=== PATIENT | male | born 1970 | race African-American/Black ===

== ENCOUNTER 2018-12-06 13:37 | Outpatient (CLI) | payer OTHER ==
--- NOTE | 2018-12-06 14:11 | RAD ---
XR Knee Rt 4 View STANDARD History: Knee pain and swelling Comparison: Radiograph 2007 Findings: Bipartite patella. Large effusion. There is mild flattening of the tear surfaces of the med ial and lateral compartments. Moderate patellofemoral compartment degenerative change. Large tricompartmental osteophytes. Mild widening of the intercondylar notch. Impression: Advanced for age tricompartmental degenerative disease. Joint effusion is greater than ex pected for degenerative change and MRI to evaluate for underlying internal derangement recommended if clinically warranted.
== END 2018-12-06 13:38 | disposition home or self-care (01) ==
LOC: BICRAD 13:37
PROVIDERS: ATTEND Family Medicine
DX: M25.561 Pain in right knee (principal); M25.461 Effusion, right knee; M17.11 Unilateral primary osteoarthritis, right knee

== ENCOUNTER → 2019-07-22 | Day surgery (SDC) | payer OTHER ==
[2019-07-21 08:55] VITALS: BMI 33.9
[~2019-07-22] MED LIST: Lidocaine 1% PF 5 ML VIAL ONE; PROPOFOL 200 MG/20 ML VIAL ONE
--- NOTE | 2019-07-22 16:11 | OP ---
DATE OF PROCEDURE: 07/22/2019 PROCEDURE PERFORMED: Colonoscopy with biopsy. PREOPERATIVE DIAGNOSES: A 49-year-old male with abdominal pain , diarrhea, mild rectal bleeding. The patient had previous history of ulcerative colitis. The patient undergoing colonoscopy. POSTOPERATIVE DIAGNOSES: 1. Colitis, active predominantly in the left colon. 2. Loss of mucosal and vascular pattern and occasional pseudopolyps, transverse colon. 3. Normal ascending colon and cecum. The colitis was over the rectum and up to high sigmoid colon area. DESCRIPTION OF PROCEDURE: The patient was placed on his left lateral position and was given sedation by Anesthesia Department. A digital exam was done before the scope was advanced into the rectum. No lesions felt on rectal exam. A [employer]ax video colonoscope was introduced into the rectum and advanced all the way to the cecum. The patient had some mucosal coating of fecal material. Water was used to irrigate and wash out. In the appendiceal orifice, ileocecal wall, and cecum, no pathology seen. In the ascending colon, hepatic flexure, transverse colon, no colitis seen. However, the distal transverse colon showed us loss of vascular pattern and mucosal edema and occasional pseudopolyps. The descending colon again showed loss of mucosal vascular pattern. The rectum and sigmoid colon shows ulceration, friability, loss of mucosal vascular pattern. This was most recent rectum and up to high sigmoid colon area. Random biopsies obtained from the ascending colon, cecum, hepatic flexure, transverse colon, descending colon, sigmoid colon x2, and rectum. Retroflexion of scope in the rectum showed distal hemorrhoids. DISCHARGE PLANNING: This is a 49-year-old male with hematochezia, diarrhea, abdominal cramping. The patient had prior history of ulcerative colitis. He does have active colitis, mostly in the rectum and sigmoid colon area. He underwent colonoscopy with biopsy. DISCHARGE RECOMMENDATIONS: 1. Resume mesalamine 2 capsules three times a day. 2. He is advised to call me if he develops abdominal pain, hematochezia, or fever. 3. To come back to clinic in 2 weeks. Job ID: [id number] MTDD
== END ==
LOC: SDC 05:54
PROVIDERS: ATTEND Internal Medicine Gastroenterology
PROC: 0DBK8ZX Excision of Ascending Colon, Via Natural or Artificial Opening Endoscopic, Diagnostic (ICD-10-PCS; principal; 2019-07-22)
PROC: 0DBH8ZX Excision of Cecum, Via Natural or Artificial Opening Endoscopic, Diagnostic (ICD-10-PCS; principal; 2019-07-22)
PROC: 0DBL8ZX Excision of Transverse Colon, Via Natural or Artificial Opening Endoscopic, Diagnostic (ICD-10-PCS; principal; 2019-07-22)
PROC: 0DBN8ZX Excision of Sigmoid Colon, Via Natural or Artificial Opening Endoscopic, Diagnostic (ICD-10-PCS; principal; 2019-07-22)
PROC: 0DBP8ZZ Excision of Rectum, Via Natural or Artificial Opening Endoscopic (ICD-10-PCS; principal; 2019-07-22)
PROC: 0DBM8ZX Excision of Descending Colon, Via Natural or Artificial Opening Endoscopic, Diagnostic (ICD-10-PCS; principal; 2019-07-22)
DX: K52.9 Noninfective gastroenteritis and colitis, unspecified (principal); K64.9 Unspecified hemorrhoids; K62.6 Ulcer of anus and rectum; Z79.899 Other long term (current) drug therapy
CPT/HCPCS: 88305; J2001; J2704

== ENCOUNTER 2020-10-25 10:25 | Outpatient (CLI) | payer OTHER | END 2020-10-25 10:26 | disposition home or self-care (01) | LOC: BICRAD 10:25 | DX: M47.26 Other spondylosis with radiculopathy, lumbar region (principal) | CPT/HCPCS: 72110 ==